=== PATIENT | male | born 1970 | race Caucasian/White ===

== ENCOUNTER 2025-04-14 06:56 | Day surgery (SDC) | payer BC ==
[2025-04-14] MEDS ORDERED: methylPREDNISolone acetate IM ONE (06:57)
[2025-04-14] MEDS ORDERED: BUPIVACAINE 0.5% VIAL IJ ONE (06:57)
[2025-04-14] MEDS ORDERED: propofoL IV ONE (08:41)
[2025-04-14] MEDS ORDERED: MORPHINE SULFATE 4 MG INJ ONE (09:01)
[2025-04-14] MEDS ORDERED: Lactated Ringers 1,000 ML IV ONE (09:22)
--- NOTE | 2025-04-14 10:31 | XRAY ---
Indication: Right SI joint injection. Intraoperative fluoroscopy provided for 20 seconds. Single digital spot image submitted for interpretation demonstrates posterior needle tip projecting over right SI joint. Small amount of contrast injected for needle tip placement. Correlate with intraoperative findings/report.
--- NOTE | 2025-04-14 12:46 | XRAY ---
20 seconds of fluoroscopy was used in surgery for a right sacroiliac joint injection.
== END 2025-04-14 09:20 | disposition home or self-care (01) ==
LOC: SDC-PAIN 06:56
PROVIDERS: ATTEND Psychiatry & Neurology Pain Medicine
DX: M46.1 Sacroiliitis, not elsewhere classified (principal); E11.9 Type 2 diabetes mellitus without complications

== ENCOUNTER 2025-05-13 15:02 | Day surgery (SDC) | payer BC ==
[2025-05-13] MEDS ORDERED: BUPIVACAINE 0.5% VIAL IJ ONE (15:03)
[2025-05-13] MEDS ORDERED: LIDOCAINE HCL 1% 50 MG/5 ML VL IJ ONE (15:03)
[2025-05-13] MEDS ORDERED: methylPREDNISolone acetate IM ONE (15:03)
--- NOTE | 2025-05-13 17:34 | XRAY ---
Indication: Right hip injection. Intraoperative fluoroscopy provided for 10 seconds. Single digital spot image submitted for interpretation demonstrates needle tip projecting lateral to right femur neck. Small amount of contrast injected for needle tip placement. Correlate with intraoperative findings/report.
--- NOTE | 2025-05-14 12:03 | XRAY ---
10 seconds of fluoroscopy was used in surgery for a right intra-articular hip injection.
== END 2025-05-13 16:45 | disposition home or self-care (01) ==
LOC: SDC-PAIN 15:02
PROVIDERS: ATTEND Psychiatry & Neurology Pain Medicine
DX: M16.11 Unilateral primary osteoarthritis, right hip (principal); E11.9 Type 2 diabetes mellitus without complications